=== PATIENT | female | born 1965 | race African-American/Black ===

== ENCOUNTER 2017-04-28 18:27 | Emergency (ER) | payer OTHER, SELFPAY ==
[2017-04-28] MEDS ORDERED: predniSONE 20 MG TAB ONE (19:24)
[2017-04-28] MEDS ORDERED: Ketorolac Tromethamine 60 MG/2 ML VIAL ONE (19:24)
[2017-04-28] MEDS ORDERED: Lidocaine 1% PF 5 ML VIAL ONE (19:24)
== END 2017-04-28 20:05 | disposition home or self-care (01) ==
LOC: ERS 18:27
DX: L03.012 Cellulitis of left finger (principal); M54.5 Low back pain; M19.90 Unspecified osteoarthritis, unspecified site; E11.9 Type 2 diabetes mellitus without complications; F41.9 Anxiety disorder, unspecified
CPT/HCPCS: 10060; 96372; J1885; J2001; J7506

== ENCOUNTER 2018-08-03 19:24 | Emergency (ER) | payer SELFPAY ==
[~2018-08-03 19:24] MED LIST: ISOVUE-370 76%-LOCM 1 ML ONE
[2018-08-03 20:44] LABS: #Basophils 0.1 thou/uL (0.0-0.2); #Eosinphils 0.1 thou/uL (0.0-0.7); #Lymphocytes 2.2 thou/uL (1.20-3.40); #Monocytes 0.5 thou/uL (0.11-0.59); #Neutrophils 8.4 thou/uL (1.40-6.50); %Basophils 0.5 % (0.0-1.0); %Eosinophils 0.5 % (0.0-10.0); %Monocytes 4.2 % (0.0-10.0); %Neutrophils 74.9 % (42.0-75.0); Hemoglobin 13.8 g/dL (12.0-16.0); Mean Corpuscular HGB CONC 31.8 g/dL (32.0-36.0); Mean Corpuscular Hemoglobin 26.4 pg (27.0-31.0); Mean Corpuscular Volume 82.9 fL (78.0-98.0); Mean Platelet Volume 9.2 fL (7.4-10.4); Platelet Count 322 thou/uL (130-400); RBC Distribution Width 14.2 % (11.5-14.5); Red Blood Cell (RBC) Count 5.24 mill/uL (4.20-5.40); White Blood Cell (WBC) Count 11.2 thou/uL (4.8-10.8)
[2018-08-03 21:13] LABS: ALT (SGPT) 22 U/L (8-55); AST (SGOT) 29 U/L (5-34); Albumin 4.3 g/dL (3.5-5.0); Alkaline Phosphatase 153 U/L (40-150); Anion Gap 14 mmol/L (10-20); BUN (Urea Nitrogen) 11 mg/dL (9.8-20.1); Bilirubin, Total 0.2 mg/dL (0.2-1.2); Calc. Creatinine Clearance 0 mL/min (70-130); Calcium 10.3 mg/dL (7.8-10.44); Carbon Dioxide 28 mmol/L (22-29); Chloride 98 mmol/L (98-107); Estimated GFR-MDRD 72; Globulin 4.8 g/dL (2.4-3.5); Glucose 210 mg/dL (70-105); Potassium 5.1 mmol/L (3.5-5.1); Protein, Total 9.1 g/dL (6.0-8.3); Sodium 135 mmol/L (136-145)
--- NOTE | 2018-08-03 22:35 | CT ---
CT FACE with IV contrast HISTORY: swelling, evaluate periorbital cellulitis. TECHNIQUE: Axial CT imaging obtained at 2.5 mm intervals through the face with IV contrast. Coronal and sagittal reformatted imaging obtained. FINDINGS: The imaged brain parenchyma appears unremarkable. The frontal sinuses, ethmoid air cells, and sphenoid sinuses are well aerated as are bilateral mastoi d air cells in the left maxillary sinus. There is mucosal thickening of the right maxillary sinus wit h an air fluid level. Findings could signify a sinusitis in the proper clinical setting. The nasal janice chicho, the zygomatic arches, and the pterygoid plates are intact. There is no inflammatory change withi n the intraconal fat on either side. No evidence for post septal cellulitis is seen. There is a superficial hypodense collection within the subcutaneous fat of the upper lip just inferio r to the base of the nose on the right, base seen on axial image [id number] suggesting a small subcutaneou s abscess/phlegmon measuring in the 7 x 11 mm range. Many of the maxillary teeth are absent. No discrete periapical abscess is seen involving the remainin g maxillary teeth. There are multiple missing mandibular teeth as well. There are dental caries invol ving the posterior two left mandibular teeth with a periapical abscess involving the second from the back remaining left mandibular tooth. Enlarged lymph nodes are noted in the bilateral level IIA enlarged nodes are present measuring 1.1 cm on the left and 1.6 cm on the right, presumably reactive in nature. Mildly prominent level I nodes a re present as well. IMPRESSION: Soft tissue swelling and fat stranding of the upper lip just to the right of midline at the base of t he nose with a probable small subcutaneous abscess measuring in the 6 x 11 mm range. POS: [facility]
[2018-08-04] MEDS ORDERED: Lidocaine 1% PF 5 ML VIAL ONE (00:06)
[2018-08-04] MEDS ORDERED: Ketorolac Tromethamine 30 MG/ML VIAL ONE (00:06)
== END 2018-08-04 01:00 | disposition home or self-care (01) ==
LOC: ERS 19:24
DX: J34.0 Abscess, furuncle and carbuncle of nose (principal); E11.9 Type 2 diabetes mellitus without complications; F41.9 Anxiety disorder, unspecified
CPT/HCPCS: 10060; 70487; 80053; 83605; 85025; 96374; J1885; J2001

== ENCOUNTER 2018-11-21 18:13 | Emergency (ER) | payer SELFPAY ==
[2018-11-21] MEDS ORDERED: Ketorolac Tromethamine 60 MG/2 ML VIAL ONE (19:31)
== END 2018-11-21 19:33 | disposition home or self-care (01) ==
LOC: ERS 18:13
DX: M17.11 Unilateral primary osteoarthritis, right knee (principal); E11.9 Type 2 diabetes mellitus without complications; I10 Essential (primary) hypertension; F41.9 Anxiety disorder, unspecified; Z79.899 Other long term (current) drug therapy
CPT/HCPCS: 96372; J1885

== ENCOUNTER 2019-04-06 08:36 | Outpatient (CLI) | payer MEDICARE ==
--- NOTE | 2019-04-06 11:30 | MMO ---
Bilateral MAMMO Bilat Screen [facility]. CLINICAL HISTORY: Patient is 54 years old and is seen for screening. The patient has no family history of breast cancer. The patient has no personal history of cancer. VIEWS: The views performed were: bilateral craniocaudal with tomosynthesis and bilateral mediolateral oblique with tomosynthesis. FILMS COMPARED: The present examination has been compared to prior imaging studies performed at and 03/18/2016. This study has been interpreted with the assistance of computer-aided detection. MAMMOGRAM FINDINGS: There are scattered fibroglandular densities. There are no suspicious masses, suspicious calcifications, or new areas of architectural distortion. IMPRESSION: THERE IS NO MAMMOGRAPHIC EVIDENCE OF MALIGNANCY. A ROUTINE FOLLOW-UP MAMMOGRAM IN 1 YEAR IS RECOMMENDED. THE RESULTS OF THIS EXAM WERE SENT TO THE PATIENT. ACR BI-RADS Category 1 - Negative MAMMOGRAPHY NOTE: 1. A negative mammogram report should not delay a biopsy if a dominant of clinically suspicious mass is present. 2. Approximately 10% to 15% of breast cancers are not detected by mammography. 3. Adenosis and dense breasts may obscure an underlying neoplasm. Reported by: HOMERO ALLEN MD Electonically Signed: [id number]
== END 2019-04-06 08:37 | disposition home or self-care (01) ==
LOC: BICMAMMO 08:36
PROVIDERS: ATTEND Physician Assistant
DX: Z12.31 Encounter for screening mammogram for malignant neoplasm of breast (principal)
CPT/HCPCS: 77063; 77067

== ENCOUNTER 2020-07-30 12:04 | Outpatient (CLI) | payer MEDICARE ==
--- NOTE | 2020-07-30 12:50 | MMO ---
Bilateral MAMMO Bilat Screen [facility]. CLINICAL HISTORY: Patient is 55 years old and is seen for screening. The patient has no family history of breast cancer. The patient has no personal history of cancer. VIEWS: The views performed were: bilateral craniocaudal with tomosynthesis and bilateral mediolateral oblique with tomosynthesis. FILMS COMPARED: The present examination has been compared to prior imaging studies performed at 09/08/2010, 03/18/2016 and 04/06/2019. This study has been interpreted with the assistance of computer-aided detection. MAMMOGRAM FINDINGS: There are scattered fibroglandular densities. There are no suspicious masses, suspicious calcifications, or new areas of architectural distortion. IMPRESSION: THERE IS NO MAMMOGRAPHIC EVIDENCE OF MALIGNANCY. A ROUTINE FOLLOW-UP MAMMOGRAM IN 1 YEAR IS RECOMMENDED. THE RESULTS OF THIS EXAM WERE SENT TO THE PATIENT. ACR BI-RADS Category 1 - Negative MAMMOGRAPHY NOTE: 1. A negative mammogram report should not delay a biopsy if a dominant of clinically suspicious mass is present. 2. Approximately 10% to 15% of breast cancers are not detected by mammography. 3. Adenosis and dense breasts may obscure an underlying neoplasm. Reported by: HOMERO ALLEN MD Electonically Signed: [id number]
== END 2020-07-30 12:05 | disposition home or self-care (01) ==
LOC: BICMAMMO 12:04
PROVIDERS: ATTEND Physician Assistant
DX: Z12.31 Encounter for screening mammogram for malignant neoplasm of breast (principal)
CPT/HCPCS: 77063; 77067

== ENCOUNTER 2021-08-12 11:50 | Outpatient (CLI) | payer MEDICARE | END 2021-08-12 11:51 | disposition home or self-care (01) | LOC: BICMAMMO 11:50 | PROVIDERS: ATTEND Physician Assistant | DX: Z12.31 Encounter for screening mammogram for malignant neoplasm of breast (principal); N63.10 Unspecified lump in the right breast, unspecified quadrant | CPT/HCPCS: 77063; 77067 ==

== ENCOUNTER 2024-04-05 11:31 | Emergency (ER) | payer MEDICARE | END 2024-04-05 12:34 | disposition home or self-care (01) | LOC: ERS 11:31 | DX: T16.2XXA Foreign body in left ear, initial encounter (principal); E11.9 Type 2 diabetes mellitus without complications; I10 Essential (primary) hypertension | CPT/HCPCS: 69200; 99282 ==